=== PATIENT | female | born 1985 | race Caucasian/White ===

== ENCOUNTER 2021-03-02 12:48 | Inpatient (IN) | payer OTHER ==
[~2021-03-02] VITALS: Ht 160 cm; Wt 76.7 kg
[~2021-03-02 12:48] MED LIST: ALL DAY ALLERGY10 M2 PO; AUGMENTIN 875-1 EACH PO; AZITHROMYCIN250 MG PO; CEFUROXIME500 MG PO; IPRAT-ALBUT 0.5-3 ML INH; LEVAQUIN750 MG PO; MEDROL DOSEPAK 24 MG PO; MULTI-VITAMIN1 EACH PO; OMNICEF 300 MG300 MG PO; PREDNISONE 20 M20 MG GT; PREDNISONE 50 M50 MG PO; PREDNISONE10 M1 PO; PROTONIX 40 MG40 M1 PO; PROVENTIL HFA 61 INH INH; PROVENTIL HFA6.7 GM INH; SINGULAIR10 MG PO; SUBOXONE 8 MG-1 EACH SL; TAMIFLU 75 MG C75 MG PO; TESSALON PERLE100 MG PO; VIBRAMYCIN100 MG PO; ZITHROMAX500 MG PO
[2021-03-02 14:05] LABS: RED BLOOD COUNT 4.28 M/UL (4.00-5.10); WHITE BLOOD COUNT 15.9 K/UL (4.5-11.0)
[2021-03-02 14:28] LABS: BUN/CREATININE RATIO 22 (0-10)
[2021-03-02] MEDS ORDERED: GABAPENTIN600 MG PO (22:03)
[2021-03-02] MEDS ORDERED: IBU800 MG PO (22:04)
[2021-03-02] MEDS ORDERED: FAMOTIDINE40 MG PO (22:04)
[2021-03-02] MEDS ORDERED: TIZANIDINE HCL4 MG PO (22:05)
[2021-03-03 05:56] LABS: HEMOGLOBIN 12.8 gm/dl (12.3-15.3); RED BLOOD COUNT 4.41 M/UL (4.00-5.10); WHITE BLOOD COUNT 14.2 K/UL (4.5-11.0)
[2021-03-03 06:13] LABS: BUN/CREATININE RATIO 26 (0-10)
[2021-03-03] MEDS ORDERED: BUPRENORPHIN-N1 EACH SL (13:53)
[2021-03-04 04:34] LABS: RED BLOOD COUNT 4.14 M/UL (4.00-5.10)
[2021-03-04 04:36] LABS: WHITE BLOOD COUNT 20.4 K/UL (4.5-11.0)
[2021-03-04 04:50] LABS: BUN/CREATININE RATIO 42 (0-10)
[2021-03-04] MEDS ORDERED: DOXYCYCLINE HY100 MG PO (10:53)
[2021-03-04] MEDS ORDERED: PREDNISONE20 MG PO (10:53)
== END 2021-03-04 13:26 | disposition home or self-care (01) | DRG 193 ==
LOC: ER1 12:48 → CDU 18:20 → MED SURG 4 20:15
PROVIDERS: Nurse Practitioner; Physician Assistant; ADMIT Internal Medicine
DX: J18.9 Pneumonia, unspecified organism (principal); J96.01 Acute respiratory failure with hypoxia; J44.0 Chronic obstructive pulmonary disease with (acute) lower respiratory infection; J44.1 Chronic obstructive pulmonary disease with (acute) exacerbation; F17.210 Nicotine dependence, cigarettes, uncomplicated; Z20.822 Contact with and (suspected) exposure to COVID-19; J20.9 Acute bronchitis, unspecified; Z88.1 Allergy status to other antibiotic agents; Z83.3 Family history of diabetes mellitus; Z82.49 Family history of ischemic heart disease and other diseases of the circulatory system; Z79.899 Other long term (current) drug therapy
CPT/HCPCS: 0240U; 36415; 36600; 71045; 80048; 80053; 82550; 82553; 82803; 83605; 83735; 84484; 84703; 85025; 85379; 87040; 93005; 94640; 94664; 94760; 96374; 96375; 99285; J0456; J0696; J2920; J2930; J7030; Q9967

== ENCOUNTER 2021-07-20 15:55 | Inpatient (IN) | payer OTHER ==
[~2021-07-20] VITALS: Ht 160 cm; Wt 90.3 kg
[~2021-07-20 15:55] MED LIST changes: +BUPRENORPHIN-N1 EACH SL; +DOXYCYCLINE HY100 MG PO; +FAMOTIDINE40 MG PO; +GABAPENTIN600 MG PO; +IBU800 MG PO; +PREDNISONE20 MG PO; +TIZANIDINE HCL4 MG PO
[2021-07-20 18:23] LABS: HEMOGLOBIN 13.6 gm/dl (12.3-15.3); RED BLOOD COUNT 4.37 M/UL (4.00-5.10); WHITE BLOOD COUNT 14.7 K/UL (4.5-11.0)
[2021-07-20 18:39] LABS: BUN/CREATININE RATIO 15 (0-10)
[2021-07-20] MEDS ORDERED: IBUPROFEN800 MG PO (21:10)
[2021-07-20] MEDS ORDERED: LASIX20 MG PO (21:11)
[2021-07-20] MEDS ORDERED: DICYCLOMINE HCL10 MG PO (21:12)
[2021-07-20] MEDS ORDERED: K-TAB ER10 MEQ PO (21:13)
[2021-07-21 06:04] LABS: HEMOGLOBIN 12.8 gm/dl (12.3-15.3); RED BLOOD COUNT 4.18 M/UL (4.00-5.10); WHITE BLOOD COUNT 11.4 K/UL (4.5-11.0)
[2021-07-21 06:35] LABS: BUN/CREATININE RATIO 11 (0-10)
[2021-07-21] MEDS ORDERED: PULMICORT0.25 MG/1 INH (11:55)
[2021-07-21] MEDS ORDERED: PREDNISONE 10 M10 MG PO (11:55)
[2021-07-21] MEDS ORDERED: LEVOFLOXACIN750 MG PO (12:06)
[2021-07-21] MEDS ORDERED: DOXYCYCLINE HY100 MG PO (13:56)
== END 2021-07-21 14:06 | disposition home or self-care (01) | DRG 193 ==
LOC: ER1 15:55 → M/S 20:47 → CDU 20:47 → M/S 23:13
PROVIDERS: Physician Assistant; ADMIT Internal Medicine
DX: J15.9 Unspecified bacterial pneumonia (principal); J96.01 Acute respiratory failure with hypoxia; Z20.822 Contact with and (suspected) exposure to COVID-19; J44.1 Chronic obstructive pulmonary disease with (acute) exacerbation; J44.0 Chronic obstructive pulmonary disease with (acute) lower respiratory infection; J12.9 Viral pneumonia, unspecified; F17.210 Nicotine dependence, cigarettes, uncomplicated; E66.9 Obesity, unspecified; Z90.49 Acquired absence of other specified parts of digestive tract; Z88.1 Allergy status to other antibiotic agents; Z68.36 Body mass index [BMI] 36.0-36.9, adult
CPT/HCPCS: 36415; 36600; 71045; 80048; 80053; 82803; 85025; 94640; 94760; 99285; J0456; J0696; J2920; J7030; U0002

== ENCOUNTER → 2021-09-13 | Outpatient (CLI) | payer OTHER ==
[~2021-09-13] MED LIST changes: +DICYCLOMINE HCL10 MG PO; +IBUPROFEN800 MG PO; +K-TAB ER10 MEQ PO; +LASIX20 MG PO; +LEVOFLOXACIN750 MG PO; +PREDNISONE 10 M10 MG PO; +PULMICORT0.25 MG/1 INH
== END ==
LOC: KOH-I 11:58
DX: R05.9 Cough, unspecified (principal)
CPT/HCPCS: 71046

== ENCOUNTER → 2021-10-11 | Outpatient (CLI) | payer OTHER | LOC: KOH-I 13:33 | DX: R05.9 Cough, unspecified (principal); R91.8 Other nonspecific abnormal finding of lung field | CPT/HCPCS: 71046 ==

== ENCOUNTER 2022-01-25 09:25 | Inpatient (IN) | payer OTHER ==
[~2022-01-25] VITALS: Ht 165.1 cm; Wt 86.2 kg
[~2022-01-25 09:25] MED LIST changes: +DOXYCYCLINE MO100 MG PO; -GABAPENTIN600 MG PO; -IBUPROFEN800 MG PO; -K-TAB ER10 MEQ PO; -LASIX20 MG PO
[2022-01-25 09:52] LABS: HEMOGLOBIN 14.3 gm/dl (12.3-15.3); RED BLOOD COUNT 4.79 M/UL (4.00-5.10)
[2022-01-25 09:54] LABS: WHITE BLOOD COUNT 30.3 K/UL (4.5-11.0)
[2022-01-25 10:12] LABS: BUN/CREATININE RATIO 18 (0-10)
[2022-01-25 13:24] LABS: BORDETELLA PARAPERTUSSIS Not Detected (Not Detectd); CORONAVIRUS HKU1 Not Detected (Not Detectd); CORONAVIRUS NL63 Not Detected (Not Detectd); CORONAVIRUS OC43 Not Detected (Not Detectd); CORONOAVIRUS 229E Not Detected (Not Detectd); HUMAN METAPNEUMOVIRUS Not Detected (Not Detectd); INFLUENZA A Not Detected (Not Detectd); INFLUENZA B Not Detected (Not Detectd); PARAINFLUENZA VIRUS 1 Not Detected (Not Detectd); PARAINFLUENZA VIRUS 2 Not Detected (Not Detectd); PARAINFLUENZA VIRUS 4 Not Detected (Not Detectd); RESPIRATORY SYNCYTIAL VIRUS Not Detected (Not Detectd)
[2022-01-25 13:25] LABS: BORDETELLA PERTUSSIS Not Detected (Not Detectd); CHLAMYDIA PNEUMONIAE Not Detected (Not Detectd); MYCOPLASMA PNEUMONIAE Not Detected (Not Detectd)
[2022-01-25 14:40] LABS: HUMAN RHINOVIRUS/ENTEROVIRUS DETECTED (Not Detectd); PARAINFLUENZA VIRUS 3 DETECTED (Not Detectd); SARS-CoV-2 NOT DETECTED (Not Detectd)
[2022-01-25] MEDS ORDERED: IBUPROFEN800 MG PO (16:21)
[2022-01-25] MEDS ORDERED: PREDNISONE20 MG PO (16:23)
[2022-01-25] MEDS ORDERED: PROMETHAZINE-D473 M1 PO (16:37)
[2022-01-25] MEDS ORDERED: SYMBICORT 16010.2 GM INH (16:47)
[2022-01-25] MEDS ORDERED: LASIX20 MG PO (21:11)
[2022-01-25] MEDS ORDERED: K-TAB ER10 MEQ PO (21:13)
[2022-01-25] MEDS ORDERED: GABAPENTIN800 MG PO (22:03)
[2022-01-26 01:45] LABS: RED BLOOD COUNT 4.05 M/UL (4.00-5.10); WHITE BLOOD COUNT 17.2 K/UL (4.5-11.0)
[2022-01-26 02:52] LABS: BUN/CREATININE RATIO 22 (0-10)
[2022-01-26 17:18] LABS: BORDETELLA PARAPERTUSSIS Not Detected (Not Detectd); BORDETELLA PERTUSSIS Not Detected (Not Detectd); CHLAMYDIA PNEUMONIAE Not Detected (Not Detectd); CORONAVIRUS HKU1 Not Detected (Not Detectd); CORONAVIRUS NL63 Not Detected (Not Detectd); CORONAVIRUS OC43 Not Detected (Not Detectd); CORONOAVIRUS 229E Not Detected (Not Detectd); HUMAN METAPNEUMOVIRUS Not Detected (Not Detectd); INFLUENZA A Not Detected (Not Detectd); INFLUENZA B Not Detected (Not Detectd); MYCOPLASMA PNEUMONIAE Not Detected (Not Detectd); PARAINFLUENZA VIRUS 1 Not Detected (Not Detectd); PARAINFLUENZA VIRUS 2 Not Detected (Not Detectd); PARAINFLUENZA VIRUS 3 Not Detected (Not Detectd); PARAINFLUENZA VIRUS 4 Not Detected (Not Detectd); RESPIRATORY SYNCYTIAL VIRUS Not Detected (Not Detectd)
[2022-01-26 19:18] LABS: HUMAN RHINOVIRUS/ENTEROVIRUS DETECTED (Not Detectd); SARS-CoV-2 NOT DETECTED (Not Detectd)
[2022-01-27 08:55] LABS: RED BLOOD COUNT 4.09 M/UL (4.00-5.10)
[2022-01-27 09:20] LABS: BUN/CREATININE RATIO 20 (0-10)
--- NOTE | 2022-01-27 09:32 | NUR ---
Karina had a glucose lab of 59 to come back, patient was rechecked with the finger glucose check and it read 56. MD made aware, she ordered to give patient orange juice and to reckeck patients blood glucose. Gave patient two cups of orange juice and will recheck it.
--- NOTE | 2022-01-27 10:04 | NUR ---
Patients glucose rechecked after 2 cups of orange juice and it was 114, will continue to monitor patient for hypoglycemia.
[2022-01-28 02:44] LABS: HEMOGLOBIN 11.9 gm/dl (12.3-15.3); RED BLOOD COUNT 4.06 M/UL (4.00-5.10); WHITE BLOOD COUNT 24.8 K/UL (4.5-11.0)
[2022-01-28 03:34] LABS: BUN/CREATININE RATIO 13 (0-10)
--- NOTE | 2022-01-28 07:19 | NUR ---
patient is in isolation she asked to be unhooked from her iv i educated her that she was in isolation and smoking using oxygen was a dangerous situayion. she stated she did it all evening and was going anyway. significant other wheeled her off [employer].
--- NOTE | 2022-01-28 10:35 | NUR ---
sitting 02 3 liters nc 98 resting 02 room air 84% declined to ambulate.
--- NOTE | 2022-01-28 18:21 | NUR ---
PT HAS CONTINUED TO LEAVE THE UNIT WITHOUT OXYGEN SHE STOPPED AT NURSES STATION 2 X ASKING WHAT HER 02 WAS SHE VERBALIZED SHE DIDNT FEEL SHORT OF AIR BUT HER APPEARANCE WAS DIFFERENT. DR CHRISTIE AWARE, MELYSSA AWARE AND THE SUBWAY TRAIN OPERATOR ALL AWARE OF PT'S CONTINUED NON COMPLIANCE.
[2022-01-29 03:22] LABS: HEMOGLOBIN 11.3 gm/dl (12.3-15.3); RED BLOOD COUNT 3.84 M/UL (4.00-5.10)
[2022-01-29 03:42] LABS: WHITE BLOOD COUNT 11.9 K/UL (4.5-11.0)
[2022-01-29 04:26] LABS: BUN/CREATININE RATIO 17 (0-10)
--- NOTE | 2022-01-29 12:39 | NUR ---
PATIENT HAS BEEN OUTSIDE 3 TIMES THIS MORNING TO SMOKE, SHE WANTS TO GO HOME, I CHECKED HER O2 WITHOUT OXYGEN AFTER APPROXIMATELY 5 MINUTES AND SHE WAS 90-92 PERCENT ON ROOM AIR.
[2022-01-29] MEDS ORDERED: MEDROL DOSEPAK 24 MG PO (13:34)
== END 2022-01-29 15:26 | disposition home or self-care (01) | DRG 193 ==
LOC: ER1 09:25 → CDU 13:05 → M/S 13:05
PROVIDERS: Family Medicine; Physician Assistant Medical; ADMIT Internal Medicine
DX: J10.00 Influenza due to other identified influenza virus with unspecified type of pneumonia (principal); K85.90 Acute pancreatitis without necrosis or infection, unspecified; J96.01 Acute respiratory failure with hypoxia; Z20.822 Contact with and (suspected) exposure to COVID-19; G92.8 Other toxic encephalopathy; J45.31 Mild persistent asthma with (acute) exacerbation; B34.8 Other viral infections of unspecified site; F17.210 Nicotine dependence, cigarettes, uncomplicated; J44.9 Chronic obstructive pulmonary disease, unspecified; Z90.49 Acquired absence of other specified parts of digestive tract; Z98.891 History of uterine scar from previous surgery; Z88.1 Allergy status to other antibiotic agents; Z82.49 Family history of ischemic heart disease and other diseases of the circulatory system; Z83.3 Family history of diabetes mellitus; Z82.5 Family history of asthma and other chronic lower respiratory diseases; Z87.11 Personal history of peptic ulcer disease
CPT/HCPCS: 0240U; 36415; 36600; 71045; 80053; 80061; 80307; 82150; 82550; 82553; 82803; 82962; 83605; 83690; 83735; 84484; 85025; 85027; 87633; 93005; 94640; 94664; 94760; 96374; 96375; 99285; C9113; J1650; J2185; J2270; J2405; J2550; J2920; J7030; Q9967